=== PATIENT | female | born 1955 | race Caucasian/White ===

== ENCOUNTER 2023-03-12 14:07 | Emergency (ER) | payer OTHER, SELFPAY | END 2023-03-12 15:48 | disposition home or self-care (01) | LOC: MADERS 14:07 | DX: S82.51XA Displaced fracture of medial malleolus of right tibia, initial encounter for closed fracture (principal); S82.831A Other fracture of upper and lower end of right fibula, initial encounter for closed fracture; R55 Syncope and collapse; X50.1XXA Overexertion from prolonged static or awkward postures, initial encounter; Y93.39 Activity, other involving climbing, rappelling and jumping off | CPT/HCPCS: 29515 ==